=== PATIENT | male | born 1970 | race African-American/Black ===

== ENCOUNTER 2017-06-01 13:18 | Emergency (ER) | payer SELFPAY ==
[~2017-06-01] VITALS: Ht 167.6 cm; Wt 98.0 kg
[2017-06-01] MEDS ORDERED: KETOROLAC 60MG/2ML VIAL IM ONE (15:30)
[2017-06-01 15:37] VITALS: BP 128/77
[2017-06-01] MEDS ORDERED: HYDROCODONE/APAP 7.5/325MG 1 TAB TABLET PO ONE (16:30)
== END 2017-06-01 17:15 | disposition home or self-care (01) ==
LOC: ER 13:28
DX: M25.511 Pain in right shoulder (principal); Z91.041 Radiographic dye allergy status
CPT/HCPCS: 73030; 96372; 99284; J1885; Z7610; A4565